=== PATIENT | female | born 2000 | race Caucasian/White ===

== ENCOUNTER 2022-11-27 19:58 | Emergency (ER) | payer OTHER ==
[~2022-11-27] VITALS: Ht 160 cm; Wt 46.7 kg
== END 2022-11-27 21:47 | disposition home or self-care (01) ==
LOC: ED 19:58
DX: R51.9 Headache, unspecified (principal); M54.2 Cervicalgia; M25.561 Pain in right knee; Z87.891 Personal history of nicotine dependence; V73.6XXA Passenger on bus injured in collision with car, pick-up truck or van in traffic accident, initial encounter; Y93.89 Activity, other specified; Y92.410 Unspecified street and highway as the place of occurrence of the external cause; Y99.8 Other external cause status

== ENCOUNTER → 2022-12-10 | Outpatient (CLI) | payer OTHER | END | disposition home or self-care (01) | LOC: RAD 15:10 | PROVIDERS: ATTEND Family Medicine | DX: M47.812 Spondylosis without myelopathy or radiculopathy, cervical region (principal) ==

== ENCOUNTER 2025-03-08 00:56 | Emergency (ER) | payer OTHER ==
[~2025-03-08] VITALS: Ht 160 cm; Wt 49.9 kg
[2025-03-08] MEDS ORDERED: Amoxicillin/Clavulanate Pota 875 MG TAB PO ONE (01:15)
[2025-03-08] MEDS ORDERED: Tdap Vaccine 0.5 ML SYR (Adult Vaccine) IM ONE (01:15)
[2025-03-08] MEDS ORDERED: DERMABOND 1 EA APPL T ONE (01:52)
[2025-03-08] MEDS ORDERED: AMOX-CLAV 875-1 EACH PO (02:03)
== END 2025-03-08 02:10 | disposition home or self-care (01) ==
LOC: ED 00:56
DX: S01.112A Laceration without foreign body of left eyelid and periocular area, initial encounter (principal); W55.03XA Scratched by cat, initial encounter; Y93.89 Activity, other specified; Y92.89 Other specified places as the place of occurrence of the external cause; Y99.8 Other external cause status